=== PATIENT | male | born 2000 | race Two or more races ===

== ENCOUNTER 2022-04-04 14:10 | Emergency (ER) | payer SELFPAY ==
[~2022-04-04] VITALS: Ht 170.2 cm; Wt 52.2 kg
[2022-04-04 14:26] VITALS: BP_SYST 107
[2022-04-04 15:31] VITALS: BP_SYST 107
== END 2022-04-04 15:32 | disposition home or self-care (01) ==
LOC: SED 14:10
DX: S39.012A Strain of muscle, fascia and tendon of lower back, initial encounter (principal); V43.52XA Car driver injured in collision with other type car in traffic accident, initial encounter; Y93.89 Activity, other specified; Y92.89 Other specified places as the place of occurrence of the external cause; Y99.8 Other external cause status
CPT/HCPCS: 99281

== ENCOUNTER 2023-06-22 00:57 | Emergency (ER) | payer OTHER ==
[~2023-06-22] VITALS: Ht 170.2 cm; Wt 52.2 kg
[2023-06-22 01:00] VITALS: BP_SYST 115; PULSE 89; RESP 14; TEMP 98.3; O2SAT 98
[2023-06-22] MEDS: ACETAMINOPHEN 500 MG TABLET PO ONE (02:04)
[2023-06-22 03:00] VITALS: BP_SYST 118; PULSE 68; RESP 16; TEMP 98.4; O2SAT 100
== END 2023-06-22 03:00 | disposition home or self-care (01) ==
LOC: SED 00:57
DX: S63.501A Unspecified sprain of right wrist, initial encounter (principal); Z79.899 Other long term (current) drug therapy; V00.131A Fall from skateboard, initial encounter; Y93.51 Activity, roller skating (inline) and skateboarding; Y92.89 Other specified places as the place of occurrence of the external cause; Y99.8 Other external cause status
CPT/HCPCS: 99283